=== PATIENT | female | born 1990 | race Caucasian/White ===

== ENCOUNTER 2017-05-01 18:37 | Emergency (ER) | payer OTHER ==
--- NOTE | 2017-05-01 19:01 | ED ---
HPI Chest Pain - HPI Summary HPI Summary: 26-year-old female presents with chest pain for the last couple hours. She states pain is located on right side of chest. She states that when she takes deep breath it hurts more. She denies any fevers. She denies any recent illness. She denies any bowel pain. She denies nausea vomiting. She has had this pain before. She is nonsmoker. She is not on control. Denies any pain or swelling in legs. nothing makes it better or worse. She has no family cardiac history. She states the pain feels very sharp. Pain is constant. She has no medical conditions. She denies any recent travel or surgeries. pain is worse with positional changes. - History of Current Complaint Chief Complaint: EDChestWallPain Time Seen by Provider: 05/01/17 18:53 Hx Last Menstrual Period: 11/28/13 Pain Intensity: 4 - Allergy/Home Medications Allergies/Adverse Reactions: Allergies Allergy/AdvReac Type Severity Reaction Status Date / Time No Known Allergies Allergy Verified 09/19/15 14:45 PMH/Surg Hx/FS Hx/Imm Hx Endocrine/Hematology History: Denies: Hx Diabetes Cardiovascular History: Denies: Hx Hypertension, Hx Pacemaker/ICD Sensory History: Denies: Hx Hearing Aid Psychiatric History: Denies: Hx Panic Disorder Infectious Disease History: No Infectious Disease History: Denies: Traveled Outside the [place] in Last 30 Days - Family History Known Family History: Negative: Cardiac Disease - Social History Alcohol Use: Occasionally Substance Use Type: Reports: None Smoking Status (MU): Never Smoked Tobacco Review of Systems Negative: Fever Positive: Chest Pain Positive: Shortness Of Breath. Negative: Cough All Other Systems Reviewed And Are Negative: Yes Physical Exam Triage Information Reviewed: Yes Vital Signs On Initial Exam: Initial Vitals Temp Pulse Resp BP Pulse Ox 99.0 F 87 16 119/79 100 05/01/17 18:49 05/01/17 18:49 05/01/17 18:49 05/01/17 18:49 05/01/17 18:49 Vital Signs Reviewed: Yes Appearance: Positive: Well-Appearing Skin: Positive: Warm, Dry Head/Face: Positive: Normal Head/Face Inspection Eyes: Positive: Normal, EOMI, IDALIA, Conjunctiva Clear ENT: Positive: Normal ENT inspection, Pharynx normal, TMs normal Respiratory/Lung Sounds: Positive: Clear to Auscultation, Breath Sounds Present , Other - tenderness reproducible Cardiovascular: Positive: Normal, RRR Abdomen Description: Positive: Nontender, Soft Bowel Sounds: Positive: Present Musculoskeletal: Positive: Normal Neurological: Positive: Normal Psychiatric: Positive: Normal Diagnostics - Vital Signs Vital Signs Temp Pulse Resp BP Pulse Ox 05/01/17 18:49 99.0 F 87 16 119/79 100 - Laboratory Result Diagrams: 05/01/17 19:45 05/01/17 19:45 Lab Statement: Any lab studies that have been ordered have been reviewed, and results considered in the medical decision making process. - Radiology chest Xray Interpretation: No Acute Changes Radiology Interpretation Completed By: Radiologist - EKG No standard instances Cardiac Rate: NL EKG Rhythm: Sinus Rhythm EKG Interpretation: sinus rhythm Chest Pain Course/Dx - Course Course Of Treatment: 26-year-old female presents with chest pain for the last couple hours. She states pain is located on right side of chest. She states that when she takes deep breath it hurts more. She denies any fevers. She denies any recent illness. She denies any bowel pain. She denies nausea vomiting. She has had this pain before. She is nonsmoker. She is not on control. Denies any pain or swelling in legs. nothing makes it better or worse. She has no family cardiac history. She states the pain feels very sharp. Pain is constant. She has no medical conditions. She denies any recent travel or surgeries. pain is worse with positional changes. On exam lungs clear to auscultation. Heart regular rate and rhythm. Reproducible chest pain on exam. EKG normal. Chest x-ray normal. labs wnl. troponin neg. d- dimer neg. with no risk factors will only do one troponin. will have follow up with primary. patient understand and agrees with plan. - Chest Pain Differential Diagnosis/HQI/PQRI: Chest Wall, Lower Respiratory Infection, Pulmonary Embolism - Diagnoses Provider Diagnoses: Chest pain Discharge - Discharge Plan Condition: Good Disposition: HOME Patient Education Materials: Chest Pain (ED) Referrals: Jacqueline Nichols MD [Primary Care Provider] - Additional Instructions: Follow up with primary Take ibuprofen every 6 hours for pain Return to ED if develop any new or worsening symptoms
--- NOTE | 2017-05-01 19:39 | RAD ---
HISTORY: Chest pain COMPARISONS: None VIEWS: 4: Frontal dual-energy and lateral views of the chest. FINDINGS: CARDIOMEDIASTINAL SILHOUETTE: The cardiomediastinal silhouette is normal. TRACI: The traci are normal. PLEURA: The costophrenic angles are sharp. No pleural abnormalities are noted. LUNG PARENCHYMA: The lungs are clear. ABDOMEN: The upper abdomen is clear. There is no subphrenic gas. BONES AND SOFT TISSUES: No bone or soft tissue abnormalities are noted. OTHER: None. IMPRESSION: NO ACTIVE CARDIOPULMONARY DISEASE.
[2017-05-01 20:00] LABS: ABS Basophils 0.1 10^3/ul (0-0.2); ABS Eosinophils 0 10^3/ul (0-0.6); ABS Lymphocytes 1.4 10^3/ul (1.0-4.8); ABS Monocytes 0.5 10^3/ul (0-0.8); ABS Neutrophils 5.6 10^3/ul (1.5-7.7); ABS Nucleated RBC 0 10^3/ul; Eosinophil % 0.2 % (0-6); Hematocrit 40 % (35-47); Hemoglobin 13.1 g/dl (12.0-16.0); Lymphocyte % 18.5 % (25-47); Mean Corpuscular HGB Conc 33 g/dl (31-36); Mean Corpuscular Hemoglobin 26 pg (27-31); Mean Corpuscular Volume 79 fL (80-97); Mean Platelet Volume 9 um3 (7.4-10.4); Nucleated Red Blood Cells % 0; Platelet Count 196 10^3/ul (150-450); Red Blood Count 5.08 10^6/ul (4.0-5.4); Red Cell Distribution Width 15 % (10.5-15); White Blood Count 7.6 10^3/ul (3.5-10.8)
[2017-05-01 20:21] LABS: EGFR Non-African American 111.1 (>60)
[2017-05-01 20:47] VITALS: BP 108/51
== END 2017-05-01 20:49 | disposition home or self-care (01) ==
LOC: ED 18:37
DX: R07.9 Chest pain, unspecified (principal)
CPT/HCPCS: 36415; 71046; 80053; 84484; 85025; 85379; 85652; 86141; 93005; 99282